=== PATIENT | female | born 1950 ===

== ENCOUNTER 2017-01-24 06:11 | Inpatient (IN) ==
[2017-01-24] MEDS ORDERED: METOCLOPRAMIDE 10 MG/2 ML VIAL IV STA (06:37)
[2017-01-24] MEDS ORDERED: ONDANSETRON 4 MG/2 ML VIAL IV STA (06:37)
[2017-01-24] MEDS ORDERED: SODIUM CHLORIDE 0.9% 1,000 ML IV STA ×2 (06:37→09:28)
--- NOTE | 2017-01-24 06:46 | Emergency Department Note ---
Arrival - Arrival Chief Complaint: Abdominal / Flank Pain Stated Complaint: abdominal pain ED Nursing Triage Note: pt presented to rm #15 via EMS. pt was transfered from [facility] for further evaluation of Abd pain and n/v. colostomy noted. Hx of hernia repair in 2016 noted. Verbalized relief of pain on arrival Mode of Arrival: Stretcher Limitations: No Limitations Source: Patient Time Seen by Provider: 01/24/17 06:37 - History of Present Illness HPI Narrative: This 66-year-old [place] female presents on transfer from [place] where she presented with nausea, vomiting, abdominal pain. The patient awoke from her sleep approximately 5 hours ago with intense cramping and nausea and proceeded to have repeated vomiting. She went to [facility] where she was further evaluated and found to have a distal small bowel obstruction from incarcerated small bowel loops within a hernia. The patient currently is only mildly nauseated and has not vomited since leaving [facility]. Of note she has a history of prior small bowel obstruction leaving her with a colostomy performed by Dr. Olivo the third. She denies any significant problems the last several days and describes this as of abrupt onset. She denies any red blood or melena in the contents of her colostomy bag in the last 24 hours. At the moment she would appear to be medically stable. Onset (ago): hour(s) (Patient presents 5 hours post onset of symptoms) Allergies/Adverse Reactions: Allergies Allergy/AdvReac Type Severity Reaction Status Date / Time No Known Allergies Allergy Verified 01/24/17 06:28 Home Medications: Home Medications Medication Instructions Recorded Confirmed Type Exenatide [Byetta] 10 mcg SUBCUT DAILY 01/29/16 01/24/17 History Saxagliptin HCl [Onglyza] 5 mg PO DAILY 01/29/16 01/24/17 History Simvastatin 20 mg PO DAILY 01/29/16 01/24/17 History buPROPion HCl [Bupropion Xl] 150 mg PO DAILY 01/29/16 01/24/17 History Metoprolol Succinate Xl [Toprol Xl] 50 mg PO DAILY #30 tablet 02/10/16 01/24/17 Rx Fenofibrate [Tricor] 145 mg PO DAILY 01/24/17 01/24/17 History Levothyroxine Tab [Synthroid Tab] 25 mcg PO DAILY 01/24/17 01/24/17 History Review of System - Review of System 12 point system: reviewed and no additional remarkable complaints except as stated - Review of System Constitutional: Present: as per HPI Gastrointestinal: Present: as per HPI Medical,Surgical,& Family Hx - Medical History Cardio: History of: Hypertension Neurology: History of: Migraine HEENT: History of: Eye Problem (has trouble seeing with right eye.), HEENT Problems Endocrine: History of: Diabetes Mellitus (IDDM) Respiratory: History of: Bronchitis (had around ) Genitourinary: No history of: Recurring Urinary Tract Infections Gastrointestinal: History of: GI Problems (colostomy) Musculoskeletal: History of: Musculoskeletal Problems (arthritis in both knees. Problems with both hips.) No history of: Amputation - Surgical History Cardiac Surgeries: Patient Denies: Cardiac Surgery Thoracic Surgeries: Patient denies;: Organ Transplant, Lobectomy Neurologic Surgeries: Patient denies: Neurologic Surgery HEENT Surgeries: Surgical HX of: Eye Surgery (cataract surgery.) Abdominal Surgeries: Surgical HX of: Hernia Repair (2015) Orthopedic Surgeries: Patient denies;: Total Hip Replacement, Total Knee Replacement - Family History Family History: Reports;: Family Diabetes, Family Hypertension - Social History Smoking Status: Never smoker Frequency of Alcohol Use: None Type of Drug Use: None Exam Physical Examination: GENERAL: Obese [place] female in no acute distress. HEENT: Normocephalic. No trauma. Moist mucous membranes. EOMI. PERRLA. ENT NML NECK: Supple. No adenopathy. CARDIAC: Regular. No murmurs. Heart rate 92 CHEST: Clear to auscultation. No respiratory distress. O2 sat 95% ABDOMEN: Firm, diffusely tender abdomen with rare tinkling bowel sounds. EXTREMITIES: No trauma. Normal ROM. No pedal edema. SKIN: No diaphoresis. No rash. NEURO: Alert. Neuro intact. No focal deficits. Vital Signs: Vital Signs Temperature 97.3 F L 01/24/17 06:17 Pulse Rate 92 H 01/24/17 06:17 Respiratory Rate 16 01/24/17 06:17 Blood Pressure 179/76 01/24/17 06:17 O2 Sat by Pulse Oximetry 95 01/24/17 06:17 Course - Reevaluation(s) Reevaluation #1: Patient expectant of admission - Consultations Consultation #1: Patient seen in consultation by Dr. Plunkett who admitted the patient to Dr. Olivo a third for further evaluation treatment. Results - Labs CBC & BMP: 01/24/17 07:16 Labs: Lab per Shalonda reveals a white blood cell count of 10,800, hematocrit 37.5, glucose 198, BUN 16, creatinine 1.0, potassium 3.6, sodium 141 with normal PT and PTT. - Impressions EKG: Sinus rhythm at 92 with normal ND interval and QRS duration. Borderline right axis deviation noted no acute injury pattern noted. - Diagnostic Findings Procedure: Abdominal x-ray: image reviewed by me, report reviewed by me ( Nondiagnostic unsatisfactory film), Chest x-ray: image reviewed by me, report reviewed by me (Chest x-ray no acute disease), CT Abdomen and Pelvis: image reviewed by me, report reviewed by me (CT per Shalonda reveals distal small bowel obstruction secondary to incarcerated small bowel loops within the left abdominal wallStomal hernia.) Disposition Clinical Impression: Small bowel obstruction Case discussed with: patient Disposition: Still a Patient Condition: Guarded Time of Disposition: 09:00
[2017-01-24] MEDS ORDERED: METOCLOPRAMIDE 10 MG/2 ML VIAL ONE (07:05)
[2017-01-24] MEDS ORDERED: ONDANSETRON 4 MG/2 ML VIAL ONE ×2 (07:06→09:00)
--- NOTE | 2017-01-24 07:17 | EKG Report ---
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
--- NOTE | 2017-01-24 07:18 | XRay Report ---
XR chest 1V portable Indication: Abdominal pain Comparison: Chest x-ray 02/11/2016 Technique: Portable AP chest was performed. Findings: Study is underpenetrated. The heart appears mildly enlarged, stable. Pulmonary vasculature demonstrates no specific abnormality. Hilar structures demonstrate fairly symmetric appearance. The lungs appear clear. Bones and soft tissues demonstrate no evidence of acute pathology. Impression: 1. No evidence of acute pathology. 01/24/2017 7:14 AM PROCEDURE INTERPRETED AT [facility] DEPARTMENT OF RADIOLOGY Final Report Signed by: Dr. Khadar Lara
--- NOTE | 2017-01-24 07:19 | XRay Report ---
XR KUB Indication: Abdominal pain. Comparison: None. Technique: Supine AP image of the abdomen was obtained. Findings: Significantly limited attenuation from abdominal wall soft tissues exists. No specific pattern of abnormality involving bowel gas is demonstrated. Impression: 1. Limited diagnostic information secondary to beam attenuation from anterior abdominal wall soft tissues. No specific abnormality of the bowel gas pattern is demonstrated. 01/24/2017 7:15 AM PROCEDURE INTERPRETED AT [facility] DEPARTMENT OF RADIOLOGY Final Report Signed by: Dr. hKadar Lara
[2017-01-24 07:29] LABS: Basophils % 0.2 % (0.0-0.8); Eosinophils % 0.1 % (0.00-10.9); Hematocrit 34.1 VOL% (35.7-47.0); Hemoglobin 11.8 GM/DL (12.0-16.0); Immature Granulocytes % 0.5 %; Immature Granulocytes Absolute 0.04 #; Lymphocytes % 11.9 % (21.3-54.2); Mean Corpuscular HGB Conc 34.6 GM/DL (32-36); Mean Corpuscular Hemoglobin 30 PG (27-34); Mean Corpuscular Volume 85.7 FL (87-102); Mean Platelet Volume 10.4 FL (9.6-12.0); Monocytes # 0.4 10*3/uL (0.11-0.8); Monocytes % 4.5 % (1.7-12.7); Neutrophils # 6.8 10*3/uL (1.4-7.4); Neutrophils % 82.8 % (38.7-73.9); Platelet Count 216 T/CUMM (130-400); Red Blood Count 3.98 MC/CUMM (3.8-5.5); Red Cell Distribution Width 13.2 % (9.3-17.3); White Blood Count 8.3 T/CUMM (4-12)
[2017-01-24 08:03] LABS: Lactic Acid 1.2 MMOL/L (0.4-2.0)
[2017-01-24 08:05] LABS: Amylase 71 U/L (25-115)
[2017-01-24] MEDS ORDERED: ONDANSETRON 4 MG/2 ML VIAL IV PRN (08:41)
[2017-01-24] MEDS ORDERED: ACETAMINOPHEN 325 MG TABLET PO PRN (08:41)
[2017-01-24] MEDS ORDERED: GLUCAGON 1 MG VIAL IM PRN (08:50)
[2017-01-24] MEDS ORDERED: DEXTROSE 50% 25 GM/50 ML VIAL IV PRN (08:50)
--- NOTE | 2017-01-24 08:54 | General Surg History&Physical ---
Assessment and Plan (1) Small bowel obstruction Status: Acute Assessment and plan: Impression: Small bowel obstruction secondary to parastomal hernia. 2. Diabetes [id number]. Plan: IV fluids and NG tube. May require surgery fails to improve. 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 Carrera is a 66 year old female female who couple years ago by Dr. Olivo had a colostomy created for colon obstruction and not quite sure the etiology she did not know either. Apparently last year she came in with a parastomal hernia that he took to surgery and repaired. She returns now again because she is gotten a recurrent parastomal hernia now with some degree of small bowel obstruction. It is somewhat tender and distended at this point we can put an NG tube down some IV fluids and see if she will decompressed little bit and hopefully resolve this to some degree and not have to have immediate surgery on it. Labs look good with WBC only 8000. Home Medications Medication Instructions Recorded Confirmed Type Exenatide [Byetta] 10 mcg SQ BID 01/29/16 02/08/16 History Fenofibrate,Micronized 130 mg PO DAILY 01/29/16 02/08/16 History [Fenofibrate] Saxagliptin HCl [Onglyza] 5 mg PO DAILY 01/29/16 02/08/16 History Simvastatin 20 mg PO DAILY 01/29/16 02/08/16 History buPROPion HCl [Bupropion Xl] 150 mg PO DAILY 01/29/16 02/08/16 History traMADol TAB [Ultram] 50 mg PO TID PRN 01/29/16 02/08/16 History HYDROcodone/ACETAMIN 7.5-325 1 - 2 tablet PO Q4H PRN #30 tablet 02/05/16 Rx [[place] 7.5-325] Metoprolol Succinate Xl [Toprol Xl] 50 mg PO DAILY #30 tablet 02/10/16 Rx Allergies Allergy/AdvReac Type Severity Reaction Status Date / Time No Known Allergies Allergy Verified 01/24/17 06:28 Medical,Surgical,& Family Hx - Medical History Cardio: History of: Hypertension Neurology: History of: Migraine HEENT: History of: Eye Problem (has trouble seeing with right eye.), HEENT Problems Endocrine: History of: Diabetes Mellitus (IDDM) Respiratory: History of: Bronchitis (had around Jul/Aug) Genitourinary: No history of: Recurring Urinary Tract Infections Gastrointestinal: History of: GI Problems (colostomy) Musculoskeletal: History of: Musculoskeletal Problems (arthritis in both knees. Problems with both hips.) No history of: Amputation - Surgical History Cardiac Surgeries: Patient Denies: Cardiac Surgery Thoracic Surgeries: Patient denies;: Organ Transplant, Lobectomy Neurologic Surgeries: Patient denies: Neurologic Surgery HEENT Surgeries: Surgical HX of: Eye Surgery (cataract surgery.) Abdominal Surgeries: Surgical HX of: Hernia Repair (2016) Orthopedic Surgeries: Patient denies;: Total Hip Replacement, Total Knee Replacement - Family History Family History: Reports;: Family Diabetes, Family Hypertension - Social History Smoking Status: Never smoker Frequency of Alcohol Use: None Type of Drug Use: None Exam - Constitutional Vitals: Period Temp Pulse Resp BP Sys/Holder Pulse Ox Last 24 Hr 97.3 F-97.3 F 92-92 16-16 179-179/76-76 95 General appearance: mild distress - Head Head exam: Present: normal inspection - ENT ENT exam: Present: normal exam - Neck Neck exam: Present: normal inspection - Respiratory Respiratory exam: Present: clear to auscultation bilaterally, rales - Cardiovascular Cardiovascular exam: Present: RRR - GI/Abdominal GI/Abdominal exam: Present: distended, hypoactive bowel sounds, hernia ( Parastomal), tenderness (Tenderness about the swollen peristomal hernia) - Extremities Exam Extremities exam: Present: normal inspection - Back Exam Back exam: Present: normal inspection - Neurological Exam Neurological exam: Present: alert, oriented X3, CN II-XII intact - Skin Skin exam: Present: normal color, warm, dry 12 point system: reviewed and no additional remarkable complaints except as stated Results - Labs CBC & BMP: 01/24/17 07:16 Lab Results: I have reviewed the past 24 hour labs - Diagnostic Findings Procedure: CT Abdomen and Pelvis: report reviewed by me (Parastomal hernia with small bowel)
[2017-01-24] MEDS ORDERED: HYDROmorphone 2 MG/1 ML VIAL ONE (09:01)
[2017-01-24] MEDS: HYDROmorphone 2 MG/1 ML VIAL IV PRN ×2 (09:02→17:54)
--- NOTE | 2017-01-24 09:48 | XRay Report ---
XR chest 1V portable Indication: NG tube placement. Comparison: Chest x-ray 01/24/2017 Technique: Portable AP chest was performed. Findings: heart size appears borderline, stable. Mediastinal contents appear stable. The lung parenchyma is essentially clear. Small band of atelectasis is suggested within the left lower chest Bones and soft tissues demonstrate no significant abnormalities. NG tube terminates within the gastric fundus. The tip is directed laterally towards the left abdominal wall. Impression: 1. NG tube placement as detailed. 01/24/2017 9:45 AM PROCEDURE INTERPRETED AT [facility] DEPARTMENT OF RADIOLOGY Final Report Signed by: Dr. Khadar Lara
--- NOTE | 2017-01-24 12:31 | Event Note ---
I have seen and examined this patient. She was readmitted with a parastomal hernia with small bowel obstruction. Her hernia is soft and partially reducible. She has an NG tube and she is not toxic appearing. We will try conservative management but is likely she will require another repair of this hernia. I am wondering whether or not it will be feasible to reconnect her colon to her rectum and provide a more definitive closure of the ostomy site but the patient tells me that this has not been possible in the past. We will go ahead and see how this goes with conservative management for now per
[2017-01-24] MEDS: SODIUM CHLOR 0.45% KCL 20 MEQ 20 MEQ/1,000 ML BAG IV SCH ×3 (12:48→22:05)
[2017-01-24] MEDS: PANTOPRAZOLE 40 MG VIAL IV SCH (12:49)
[2017-01-24] MEDS: INSULIN REGULAR 100 UNIT/ML SUBCUT SCH ×3 (12:49→20:04)
[2017-01-25] MEDS: HYDROmorphone 2 MG/1 ML VIAL IV PRN ×4 (00:08→20:19)
[2017-01-25] MEDS: SODIUM CHLOR 0.45% KCL 20 MEQ 20 MEQ/1,000 ML BAG IV SCH ×5 (01:52→20:19)
[2017-01-25] MEDS: ENOXAPARIN 40 MG/0.4 ML SYRINGE SUBCUT SCH (03:12)
[2017-01-25 05:01] LABS: Basophils % 0.2 % (0.0-0.8); Eosinophils # 0.1 10*3/uL (0.0-0.87); Eosinophils % 1.1 % (0.00-10.9); Hematocrit 29.8 VOL% (35.7-47.0); Hemoglobin 9.8 GM/DL (12.0-16.0); Immature Granulocytes % 0.3 %; Immature Granulocytes Absolute 0.02 #; Lymphocytes # 2.1 10*3/uL (1.4-4.0); Lymphocytes % 33.7 % (21.3-54.2); Mean Corpuscular HGB Conc 32.9 GM/DL (32-36); Mean Corpuscular Hemoglobin 29 PG (27-34); Mean Platelet Volume 11.2 FL (9.6-12.0); Monocytes # 0.5 10*3/uL (0.11-0.8); Monocytes % 7.5 % (1.7-12.7); Neutrophils # 3.6 10*3/uL (1.4-7.4); Neutrophils % 57.2 % (38.7-73.9); Platelet Count 194 T/CUMM (130-400); Red Blood Count 3.35 MC/CUMM (3.8-5.5); Red Cell Distribution Width 13.7 % (9.3-17.3); White Blood Count 6.3 T/CUMM (4-12)
[2017-01-25 05:37] LABS: PT Patient Result 10.1 SECS; Partial Thromboplastin Time 27.5 SECS (0-40)
[2017-01-25 05:38] LABS: Bilirubin,Total 0.8 MG/DL (0.2-1.0); Magnesium 1.8 MG/DL (1.8-2.4); Osmolality,Calculated 281.3 MOS/KG (273-304); Potassium 3.9 MMOL/L (3.5-5.1); Total Protein 5.9 G/DL (6.4-8.3)
[2017-01-25] MEDS: INSULIN REGULAR 100 UNIT/ML SUBCUT SCH ×4 (07:31→21:01)
--- NOTE | 2017-01-25 07:35 | XRay Report ---
History small bowel obstruction Abdomen, 2 views NG tube overlies the body the stomach. Mild air present in the small and large bowel including as several air-filled loops of bowel overlying the lateral left hip presumably related to bowel in a left lateral abdominal wall hernia defect on prior CT. The amount of the air-filled bowel distention is improved in the interval No free air is seen Extensive chronic change in the right hip is again seen. There is numerous pelvic phleboliths again seen Gallstones again seen Impression: Interval improvement with nonspecific bowel gas pattern PROCEDURE INTERPRETED AT [facility] DEPARTMENT OF RADIOLOGY Final Report Signed by: Dr. Muna Magana
--- NOTE | 2017-01-25 09:06 | General Surgery Progress Note ---
Assessment and Plan - Time spent with patient Time spent with patient: Less than 30 minutes (1) Small bowel obstruction Status: Acute Assessment and plan: Impression: Small bowel obstruction secondary to parastomal hernia. 2. Diabetes [id number]. Plan: IV fluids and NG tube. May require surgery fails to improve. 01/25/2017. Patient is much better at this time not distended and there is no swelling of the peristomal area which is softer at this time. Abdominal films indicate much improvement in the gas pattern at this time. We will continue with NG suction for right now let her account open up a little bit more but hopefully she will be able to have that removed tomorrow. Current Visit: No Subjective Patient reports: Present: feels better, pain is less, no bowel movement, afebrile Exam - Constitutional Vitals: Period Temp Pulse Resp BP Sys/Holder Pulse Ox Last 24 Hr 97.4 F-99.5 F 80-96 18-20 122-153/43-61 93-96 General appearance: mild distress - Head Head exam: Present: normal inspection - ENT ENT exam: Present: normal exam - Neck Neck exam: Present: normal inspection - Respiratory Respiratory exam: Present: clear to auscultation bilaterally, rales - Cardiovascular Cardiovascular exam: Present: RRR - GI/Abdominal GI/Abdominal exam: Present: hypoactive bowel sounds, hernia (Less prominent at this time.), soft. Absent: tenderness - Extremities Exam Extremities exam: Present: normal inspection - Back Exam Back exam: Present: normal inspection - Neurological Exam Neurological exam: Present: alert, oriented X3, CN II-XII intact - Skin Skin exam: Present: normal color, warm, dry Results - Labs CBC & BMP: 01/25/17 03:12 01/25/17 03:12 Lab Results: I have reviewed the past 24 hour labs - Diagnostic Findings Procedure: Abdominal Flat/Erect: other (Appears to be much improved)
[2017-01-25] MEDS: PANTOPRAZOLE 40 MG VIAL IV SCH (09:10)
[2017-01-26] MEDS: ENOXAPARIN 40 MG/0.4 ML SYRINGE SUBCUT SCH (02:03)
[2017-01-26] MEDS: SODIUM CHLOR 0.45% KCL 20 MEQ 20 MEQ/1,000 ML BAG IV SCH ×2 (04:01→11:58)
[2017-01-26] MEDS: HYDROmorphone 2 MG/1 ML VIAL IV PRN ×4 (04:06→23:26)
--- NOTE | 2017-01-26 07:58 | General Surgery Progress Note ---
Assessment and Plan (1) Small bowel obstruction Status: Acute Assessment and plan: This appears to have resolved. We will remove NG tube and try a low residue diet today. In an ideal situation and interval hernia repair would be performed but the patient has a multiply recurrent parastomal hernia and it is my understanding from Dr. Pallavi ALCANTAR prior notes that it is unable to reverse this colostomy because of inadequate reach to the rectal stump. Because of these difficult circumstances I think the best thing to do would be to advance the diet and see how the patient does. Certainly if she fails to improve or if she recurs in a short interval we will be forced to try to fix this hernia again but it has nearly 100% recurrence rate if the ostomy is left in place. This was discussed in detail with the patient and she is agreeable with the plan. Current Visit: No Subjective Patient reports: Present: no new complaints, feels better, flatus, bowel movement, afebrile. Absent: blood in stool Exam - Constitutional Vitals: Period Temp Pulse Resp BP Sys/Holder Pulse Ox Last 24 Hr 97.7 F-98.7 F 76-101 16-20 143-156/53-77 92-100 General appearance: no acute distress, morbidly obese - Head Head exam: Present: normal inspection, normocephalic - Eye Eye exam: Present: EOMI Pupils: Present: LOWELL - ENT ENT exam: Present: normal exam Mouth exam: Present: normal external inspection, normal voice - Neck Neck exam: Present: normal inspection, trachea midline - Respiratory Respiratory exam: Present: clear to auscultation bilaterally. Absent: accessory muscle use, chest wall tenderness - Cardiovascular Cardiovascular exam: Present: RRR. Absent: systolic murmur, tachycardia - GI/Abdominal GI/Abdominal exam: Present: normal bowel sounds, soft, other (The ostomy is productive of flatus and stool. The parastomal hernia is soft and reducible today.). Absent: distended, tenderness, rebound - Extremities Exam Extremities exam: Present: normal inspection, normal capillary refill - Back Exam Back exam: Present: normal inspection - Neurological Exam Neurological exam: Present: alert, oriented X3 Speech: Present: normal - Skin Skin exam: Present: normal color, warm Results - Labs CBC & BMP: 01/25/17 03:12 01/25/17 03:12
[2017-01-26] MEDS: PANTOPRAZOLE 40 MG VIAL IV SCH (08:08)
[2017-01-26] MEDS: INSULIN REGULAR 100 UNIT/ML SUBCUT SCH ×4 (08:09→21:27)
[2017-01-27] MEDS: SODIUM CHLOR 0.45% KCL 20 MEQ 20 MEQ/1,000 ML BAG IV SCH ×3 (01:06→07:55)
[2017-01-27] MEDS: ENOXAPARIN 40 MG/0.4 ML SYRINGE SUBCUT SCH (03:57)
[2017-01-27] MEDS: INSULIN REGULAR 100 UNIT/ML SUBCUT SCH ×2 (08:01→11:26)
[2017-01-27] MEDS: PANTOPRAZOLE 40 MG VIAL IV SCH (08:01)
--- NOTE | 2017-01-27 08:04 | Discharge Summary ---
Hospital Course - Hospital Course Hospital Course: This patient was admitted with a small bowel obstruction and a parastomal hernia at her end colostomy site in her left side of her abdomen. Her CT scan on admission showed a transition point within the hernia but not necessarily at the neck of the hernia consistent with scar tissue related small bowel obstruction. Her hernia was reducible when I saw her and she promptly responded to NG tube and conservative management. Her NG tube was removed and her diet was advanced. We had a long discussion about operative options but because the patient has already had an extensive mesh repair of her parastomal hernia and has recurred in a short time period, I think it is reasonable to watch this for now and we can see if this recurs or if this is an isolated event. It certainly would be beneficial to avoid operating if possible. In review of the notes and talking with the patient, she has been told that her ostomy cannot be reversed because of significant damage that occurred from prior surgery and inadequate tissue in the sigmoid and rectum although I am uncertain of the exact details of this. I did explain to the patient that the ideal situation would be reversal of her ostomy and definitive closure of her ostomy site but since she has been told this is not possible by her primary surgeon I think the best thing to do would be to allow her to recover and go home and follow-up with Dr. Olivo as an outpatient. If her symptoms recur she must come immediately back to the emergency room or call our office and at that point I think it would be necessary to go ahead and take her to surgery to repair this. The hernia itself is fairly wide necked and that is why I do not think that it is necessarily a hernia causing the obstruction but just some scar tissue within the hernia itself. Diagnosis - Discharge Diagnosis (1) Small bowel obstruction Status: Acute Specialty Discharge - Follow Up or Referrals Follow up with: Favian Olivo III., MD [Physician] - 1 Month Discharge Plan - Discharge Data Disposition: Disch To Home/Self Care Condition at Discharge: Stable Discharge Diet: advance to your usual diet Activity: resume usual activities as tolerated Hygiene: no restrictions Weight Bearing at Discharge: full weight bearing Driving: no restrictions Contact your physician if you experience:: fever over 101, Difficulty voiding, Redness or swelling, Nausea/Vomiting, Shortness of breath, Bleeding, pain uncontrolled by pain medications - Discharge Medications Continue Exenatide [Byetta] 5 mcg SUBCUT DAILY Simvastatin 20 mg PO DAILY buPROPion HCl [Bupropion Xl] 150 mg PO DAILY Saxagliptin HCl [Onglyza] 5 mg PO DAILY Metoprolol Succinate Xl [Toprol Xl] 50 mg PO DAILY #30 tablet Fenofibrate [Tricor] 145 mg PO DAILY Levothyroxine Tab [Synthroid Tab] 25 mcg PO DAILY - Follow Up or Referral - Forms/Instructions Exam - Constitutional Vitals: Period Temp Pulse Resp BP Sys/Holder Pulse Ox Last 24 Hr 96.9 F-98.2 F 72-99 18-20 127-157/57-85 92-99 General appearance: no acute distress, morbidly obese - Head Head exam: Present: normal inspection, normocephalic - Eye Eye exam: Present: EOMI Pupils: Present: LOWELL - ENT ENT exam: Present: normal exam - Neck Neck exam: Present: normal inspection - Respiratory Respiratory exam: Present: clear to auscultation bilaterally. Absent: accessory muscle use, chest wall tenderness - Cardiovascular Cardiovascular exam: Present: regular rate and rhythm. Absent: systolic murmur , tachycardia - GI/Abdominal GI/Abdominal exam: Present: normal bowel sounds, soft. Absent: tenderness, rebound - Extremities Exam Extremities exam: Present: normal inspection, normal capillary refill - Back Exam Back exam: Present: normal inspection - Neurological Exam Neurological exam: Present: alert, oriented X3 - Psychiatric Psychiatric exam: Present: normal affect, normal mood - Skin Skin exam: Present: normal color, warm Discharge Results Procedures and tests throughout hospitalization: Pending Orders 01/24/17 07:16 Blood Culture Stat Labs on day of discharge: Labs from last 24 hours 01/26/17 01/26/17 01/26/17 19:22 15:43 11:16 POC Glucose 180 H 180 H 107 H Preliminary micro results at discharge 01/24/17 07:16 Blood Culture - Preliminary Blood No growth at 3 days 01/24/17 06:57 Blood Culture - Preliminary Blood No growth at 3 days DS: Provider Date of admission: 01/24/17 08:41 Primary care physician: Nadine Bradford MD Attending physician on admission: Favian Olivo III., Consults: 01/24/17 11:14 Consult to Pastoral Services [CONS] Routine Comment: Pastoral Screen: 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
[2017-01-27 11:03] VITALS: BP 150/70
== END 2017-01-27 12:45 | disposition home or self-care (01) | DRG 394 ==
LOC: EDBD → EDUNIT# → N.ED 06:11 → SUATTDRO 08:41 → N.EDINP 08:41 → N.3E 09:56
PROVIDERS: ADMIT Surgery; ATTEND Surgery